=== PATIENT | female | born 1950 | race Caucasian/White ===

== ENCOUNTER 2022-03-10 15:51 | Emergency (ER) | payer OTHER, MEDICARE, SELFPAY ==
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
[2022-03-10 16:03] VITALS: BP 169/70; BP 173/83; PULSE 70; PULSE 74; RESP 16; TEMP 36.4; O2SAT 98; BMI 41.1
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
[2022-03-10] MEDS: Acetaminophen 325 MG TABLET 975 MG PO (19:10)
== END 2022-03-10 19:29 | disposition home or self-care (01) ==
PROVIDERS: Emergency Provider Emergency Medicine
DX: S06.0X9A Concussion with loss of consciousness of unspecified duration, initial encounter (principal); S13.4XXA Sprain of ligaments of cervical spine, initial encounter; R51.9 Headache, unspecified; M54.2 Cervicalgia; M54.50 Low back pain, unspecified; V73.6XXA Passenger on bus injured in collision with car, pick-up truck or van in traffic accident, initial encounter; Y93.9 Activity, unspecified; Y92.410 Unspecified street and highway as the place of occurrence of the external cause; Y99.9 Unspecified external cause status; Z79.899 Other long term (current) drug therapy
CPT/HCPCS: 70450; 72125; 72131; 99283; 99284

== ENCOUNTER 2023-04-28 13:06 | Outpatient (AMB) | payer MEDICARE, SELFPAY ==
--- NOTE | 2023-04-28 13:17 | A.OFFPC_ITS ---
Vital Signs 04/28/23 13:18 Height 5 ft Weight 226 lb BMI 44.1 BP 134/78 Blood Pressure Location Lt brachial Position Sitting Pulse 90 Pulse Source Pulse Oximeter Pulse Oximetry (%) 98 Oxygen Delivery Method Room Air Intake Visit Reasons: New patient-DM Intake Note: Pt is here today for New patient visit. Allergies acarbose Allergy (Verified 04/28/23 13:26) Abdominal Pain acetaminophen [From Vicodin] Allergy (Verified 04/28/23 13:26) Rash amlodipine [From Norvasc] Allergy (Verified 04/28/23 13:26) Swelling atorvastatin [From Lipitor] Allergy (Verified 04/28/23 13:26) tumor that developed on her liver bee pollen [bee stings] Allergy (Verified 04/28/23 13:) Anaphylaxis codeine Allergy (Verified 04/28/23:) Rash dulaglutide [From Trulicity] Allergy (Verified 04/28/23 13:26) Abdominal Pain empagliflozin [From Jardiance] Allergy (Verified 04/28/23 13:26) Abdominal Pain erythromycin base Allergy (Verified 04/28/23 13:) Itching glipizide Allergy (Verified 04/28/23 13:26) Abdominal Pain hydrocodone [From Vicodin] Allergy (Verified 04/28/23 13:26) Rash Iodinated Contrast Media [IV Contrast Dye] Allergy (Verified 04/28/23 13:) Anaphylaxis lisinopril [From Zestril] Allergy (Verified 04/28/23 13:26) Blurry Vision marijuana (cannabis) Allergy (Verified 04/28/23 13:26) Chest Pain morphine Allergy (Verified 04/28/23 13:26) Rash moxifloxacin [From Avelox] Allergy (Verified 04/28/23 13:26) Rash omeprazole [From Prilosec] Allergy (Verified 04/28/23 13:26) Chest Pain oxycodone Allergy (Verified 04/28/23 13:26) Rash Penicillins [PCN] Allergy (Verified 04/28/23 13:26) Rash pravastatin [From Pravachol] Allergy (Verified 04/28/23 13:26) effects the liver shellfish derived Allergy (Verified 04/28/23 13:26) Angioedema stevioside [From Stevia] Allergy (Verified 04/28/23 13:26) Swelling Sulfa (Sulfonamide Antibiotics) Allergy (Verified 04/28/23 13:26) Swelling sulfamethoxazole [From Bactrim] Allergy (Verified 04/28/23 13:26) Swelling Tetracyclines Allergy (Verified 04/28/23 13:26) Rash tramadol Allergy (Verified 04/28/23 13:26) Rash trimethoprim [From Bactrim] Allergy (Verified 04/28/23 13:26) Swelling Medication List - Last Reconciled 04/28/23 by Rosalinda Acevedo MD albuterol sulfate 90 mcg/actuation inhalation aspirin 81 mg PO DAILY cholecalciferol (vitamin D3) 50 mcg PO DAILY clindamycin HCl 600 mg PO ONCE ezetimibe mg PO DAILY [fish oil 1000] [flax seed oil 1000] fluticasone propionate 50 mcg/actuation sprays intranasal insulin glargine (Lantus Solostar U-100 Insulin) units subcut lancets (FreeStyle Lancets) As directed lansoprazole 30 mg PO BID losartan 100 mg PO DAILY magnesium oxide 400 mg PO DAILY metformin 1,000 mg PO BID ondansetron mg PO DAILY pediatric multivitamin no.49 (Flintstones Gummies chewable tablet) tabs PO pen needle, diabetic (BD Stacie 2nd Gen Pen Needle) As directed polyethylene glycol 3350 (Miralax) 17 grams PO DAILY [stool softener PO] [vitamin c with echinacea PO] Tobacco use date assessed: 04/28/23 Fall risk assessment: No Falls in past year Last assessed Fall Risk: 04/28/23 Dental Screening Dental Screen Date: 04/28/23 Did you have a dental visit in the last 12 months?: Yes Did you have a dental problem in the last 6 months where you did not have access to dental care?: No Was dental information given to patient?: Patient has dentist HPI New patient-DM HPI Details Pt presents for BUSINESS IMPROVEMENT MANAGER visit. Pt had L spine fusion surgery at [facility] 2 weeks ago and is recovering. PMH includes HTN, DM 2, hyperlipid, stable on meds. Pt f/u with endo at [facility] and was started on Insulin for poorly controlled DM . PFSH Medical History (Updated 04/28/23 @ 14:55 by Rosalinda Acevedo MD) Tumor of liver Surgical History (Updated 04/28/23 @ 14:08 by Rosalinda Acevedo MD) H/O endoscopy H/O colonoscopy History of fundoplication Hx of total knee replacement History of hysterectomy Hx of hernia repair S/P cholecystectomy Hx of appendectomy Hx of tubal ligation Hx of adenoidectomy Hx of tonsillectomy Family History (Updated 04/28/23 @ 13:41 by Michelle So Maria Elena) Father Lung cancer Mother Diabetes Hypertension Heart problem ALS (amyotrophic lateral sclerosis) Social History Housing: House Patient Tobacco Use Status: Never used Tobacco Current occupational status: retired Cognitive needs: No Hearing needs: No Vision needs: Yes Questionnaire PHQ-9 Over the last 2 weeks, how often have you been bothered by any of the following problems? 1. Little interest or pleasure in doing things: not at all 2. Feeling down, depressed, or hopeless: not at all 3. Trouble falling or staying asleep, or sleeping too much: not at all 4. Feeling tired or having little energy: not at all 5. Poor appetite or overeating: not at all 6. Feeling bad about yourself - or that you are a failure or have let yourself or your family down: not at all 7. Trouble concentrating on things, such as reading the newspaper or watching television: not at all 8. Moving or speaking so slowly that other people could have noticed. Or the opposite - being so fidgety or restless that you have been moving around a lot more than usual: not at all 9. Thoughts that you would be better off or of hurting yourself in some way: not at all Total score: 0 Depression Screening Interpretation: Negative Depression Screening Done: Yes Source: Developed by Drs. Olu Ma, Payton Mcpherson, Filippo Villatoro and colleagues, with an educational andrea from [employer]. Thrive Questionnaire Date Thrive assessed: 04/28/23 I am a: Patient What is your living situation today?: I have a steady place to live Within the past 12 months, did the food you bought not last and you didn't have the money to get more?: Never true Within the past 12 months, did you worry whether your food would run out before you got money to buy more?: Never true Do you have trouble paying for medicines?: No Do you have trouble getting transportation to medical appointments?: No Do you have trouble paying your heating and electricity bill?: No Do you have trouble taking care of your child, family member or friend?: No Do you have trouble with day-to-day activities such as bathing, preparing meals, shopping, managing finances, etc.?: No Are you currently unemployed and looking for a job?: No Are you interested in more education?: No Please select the resources that you would like help with: None Currently or been in a relationship where the following occur: no concerns reported AUDIT C Alcohol Use Questionnaire (AUDIT-C) 1. How often do you have a drink containing alcohol?: Never 3. How often do you have six or more drinks on one occasion?: Never Total Score: 0 ELLE-7 AMB Questionnaire ELLE-7 Date ELLE - 7 assessed: 04/28/23 Feeling nervous, anxious, or on edge: 0 = Not at all Not being able to stop or control worryin = Not at all Worrying too much about different things: 0 = Not at all Trouble relaxin = Not at all Being so restless that it is hard to sit still: 0 = Not at all Becoming easily annoyed or irritable: 0 = Not at all Feeling afraid as if something awful might happen: 0 = Not at all Total ELLE-7 score (0-4 normal; 5-9 mild; 10-14 moderate; 15-21 severe): 0 Source: Developed by Drs. Olu Ma, Payton Mcpherson, Filippo Villatoro and colleagues, with an educational andrea from [employer]. Review of Systems Const All systems reviewed & are unremarkable except as noted in HPI and below Reports no additional complaints Eyes Reports no additional complaints ENT Reports no additional complaints Card Reports no additional complaints Resp Reports no additional complaints GI Reports no additional complaints Reports no additional complaints Physical exam (Primary Care) Vital Signs: Last Vital Signs Pulse 90 04/28/23 13:18 BP 134/78 04/28/23 13:18 Pulse Ox 98 04/28/23 13:18 Oxygen Delivery Method Room Air 04/28/23 13:18 BMI result Body Mass Index 44.1 Tobacco/Smoking Status: Tobacco use Status Tobacco use date assessed 04/28/23 04/28/23 13:56 Patient Tobacco Use Status Never used Tobacco 04/28/23 13:56 PHQ-9: PHQ-9 Score PHQ-9: Total score 0 04/28/23 13:57 Depression Screening Interpretation: Negative Thrive Assessment: Date of Thrive Assessment Date Thrive assessed 04/28/23 04/28/23 13:57 Currently or been in a relationship where the following occur: no concerns reported Const General: no acute distress Nutritional Appearance: obese HENMT Head: Yes normal to inspection Ears: hearing grossly normal bilaterally Face and sinus: Yes normal facial exam Mouth: Normal oral and palatal mucosa present Eyes General: appearance normal, both eyes and all related structures Neck Neck: Yes no lymphadenopathy and Yes supple Resp Effort & Inspection: normal respiratory effort Auscultation: clear to auscultation bilaterally Cardio Rhythm: regular rhythm Heart sounds: S1 normal heart sound present and S2 normal heart sound present GI Inspection: Yes normal to inspection Palpation (GI): Soft to palpation Percussion: Yes normal to percussion Auscultation: normal bowel sounds Assessment and Plan Assessment & Plan (1) GERD (gastroesophageal reflux disease): Comment: EGD 2020, [facility], dysmotility Code(s): K21.9 - Gastro-esophageal reflux disease without esophagitis Plan: cont PPI (2) Pituitary mass: Comment: 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 She will start glucose monitoring with Everardo and cont current meds. f/u in 3 months (6) Vitamin D deficiency: Code(s): E55.9 - Vitamin D deficiency, unspecified (7) Obesity: Code(s): E66.9 - Obesity, unspecified Plan: weight loss discussed (8) Fusion of lumbosacral spine: Comment: 04/10 Steff Code(s): M43.27 - Fusion of spine, lumbosacral region Plan: f/u with ortho Orders: Orders Comprehensive [place]. Panel Fast 3 Months E11.9 - Type 2 diabetes mellitus without complications, E78.5 - Hyperlipidemia, unspecified, I10 - Essential (primary) hypertension Lipid Panel 3 Months E11.9 - Type 2 diabetes mellitus without complications, E78.5 - Hyperlipidemia, unspecified, I10 - Essential (primary) hypertension Ferritin 3 Months E11.9 - Type 2 diabetes mellitus without complications, E78.5 - Hyperlipidemia, unspecified, I10 - Essential (primary) hypertension Vitamin D 25-OH Total 3 Months E11.9 - Type 2 diabetes mellitus without complications, E55.9 - Vitamin D deficiency, unspecified, E78.5 - Hyperlipidemia, unspecified, I10 - Essential (primary) hypertension IRON PROFILE 3 Months E11.9 - Type 2 diabetes mellitus without complications, E78.5 - Hyperlipidemia, unspecified, I10 - Essential (primary) hypertension C Reactive Protein 3 Months E11.9 - Type 2 diabetes mellitus without complications, E78.5 - Hyperlipidemia, unspecified, I10 - Essential (primary) hypertension Hemoglobin A1c 3 Months E11.9 - Type 2 diabetes mellitus without complications, E78.5 - Hyperlipidemia, unspecified, I10 - Essential (primary) hypertension Complete Blood Count Auto Diff 3 Months E11.9 - Type 2 diabetes mellitus without complications, E78.5 - Hyperlipidemia, unspecified, I10 - Essential (primary) hypertension Microalbumin, Random (w Creat) 3 Months E11.9 - Type 2 diabetes mellitus without complications, E78.5 - Hyperlipidemia, unspecified, I10 - Essential (primary) hypertension Medications: New blood-glucose sensor (FreeStyle Everardo 3 Sensor device) As directed 2 ea 5RF Coding Level of Care Code New Pt Level 4 (63169) Diagnoses GERD (gastroesophageal reflux disease) K21.9 Pituitary mass E23.6 Hyperlipidemia E78.5 HTN (hypertension) I10 DM type 2 (diabetes mellitus, type 2) E11.9 Vitamin D deficiency E55.9 Obesity E66.9 Fusion of lumbosacral spine M43.27
[2023-04-28 13:18] VITALS: BP 134/78; PULSE 90; O2SAT 98; BMI 44.1
== END 2023-04-28 14:18 | disposition home or self-care (01) ==
PROVIDERS: Visit Provider Internal Medicine
DX: K21.9 Gastro-esophageal reflux disease without esophagitis (principal); E23.6 Other disorders of pituitary gland; E11.9 Type 2 diabetes mellitus without complications; E78.5 Hyperlipidemia, unspecified; I10 Essential (primary) hypertension; E55.9 Vitamin D deficiency, unspecified; E66.9 Obesity, unspecified; M43.27 Fusion of spine, lumbosacral region
CPT/HCPCS: 99204

== ENCOUNTER 2024-07-09 11:20 | Emergency (ER) | payer MEDICARE, SELFPAY ==
--- NOTE | ~2024-07-09 | XR_ITS ---
EXAMINATION: XR KNEE, RIGHT CLINICAL INFORMATION: fall, pain COMPARISON: None available. TECHNIQUE: Four views of the right knee. FINDINGS: Right tricompartmental total knee arthroplasty. Alignment maintained. No fracture or dislocation is seen. Mild soft tissue swelling is present in the lower thigh and anterior to the knee. XR/XR knee RT 4V IMPRESSION: Mild soft tissue swelling. Normal alignment. No acute fracture or dislocation is seen. Electronically signed by: Arash Brooks MD 07/09/2024 12:35 PM [facility]
--- NOTE | ~2024-07-09 | CT_ITS ---
EXAMINATION: CT HEAD WITHOUT CONTRAST CLINICAL INFORMATION: Humza COMPARISON: CTA head from 03/10/2022 TECHNIQUE: Contiguous axial imaging was performed from the skull base to vertex without intravenous administration of contrast. This CT examination was performed using dose optimization techniques as appropriate, variously including the following: *Automated exposure control *Adjustment of mA and/or kV according to patient size (this includes techniques or standardized protocols for targeted exams where dose is matched to indication/reason for exam; i.e. extremities or head) *Use of iterative reconstruction technique DLP: 583 mGy-cm FINDINGS: Previously identified hyperdense sellar nodule measuring 5 mm is redemonstrated and stable. Chronic white matter small vessel ischemic changes. There is no evidence of acute intracranial hemorrhage or territorial infarction. No abnormal mass effect or midline shift is seen. [place] to white matter differentiation is well preserved. No extra-axial fluid collections are identified. The ventricles are normal in size. There is no abnormal attenuation within the brain parenchyma. The osseous structures and soft tissues are normal. The mastoid air cells and visualized portions of the paranasal sinuses are well aerated. CT/CT cervical spine wo IV con IMPRESSION: 1. No acute intracranial pathology. 2. Previously identified hyperdense sellar nodule measuring 5 mm is redemonstrated and stable. 3. Chronic white matter small vessel ischemic changes. EXAMINATION: Noncontrast CT scan of the cervical spine. INDICATION: Fall COMPARISON: CT cervical spine from 03/10/2022 TECHNIQUE: Helical, multidetector axial images were obtained from the occiput to the upper thorax. Coronal and sagittal reformats of the cervical spine were provided for interpretation. DLP: 430 mGy-cm FINDINGS: No acute fractures or dislocations of the cervical spine are seen. Multilevel degenerative changes. Anatomic alignment and positioning of the vertebral bodies and posterior elements is noted. The atlantoaxial joint and craniovertebral articulations are normal without evidence of subluxation. There is no prevertebral soft tissue swelling. The thyroid gland and visualized portions of the lung apices and mediastinum are unremarkable. IMPRESSION: 1. No acute visible fracture or dislocation. 2. Multilevel degenerative changes. Electronically signed by: Davide Salazar MD 07/09/2024 12:36 PM [facility]
--- NOTE | ~2024-07-09 | XR_ITS ---
EXAMINATION: XR HAND/WRIST, LEFT CLINICAL INFORMATION: fall, pain COMPARISON: None available. TECHNIQUE: PA, lateral, and oblique views of the left hand and wrist. FINDINGS: The lateral view is limited due to overlap of the digits. 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 Evaluation is limited due to positioning. A subtle lucency at the base of the fifth metacarpal bone ulnar aspect could potentially reflect a small nondisplaced fracture. Alignment maintained. XR/XR hand wrist LT IMPRESSION: Degenerative changes are seen in the hand and wrist. Limited evaluation due to positioning. A subtle fracture at the base of the fifth metacarpal bone is not excluded. Correlate with the site of tenderness. Electronically signed by: Arash Brooks MD 07/09/2024 12:28 PM [facility]
--- NOTE | ~2024-07-09 | CT_ITS ---
EXAMINATION: CT HEAD WITHOUT CONTRAST CLINICAL INFORMATION: [place] COMPARISON: CTA head from 03/10/2022 TECHNIQUE: Contiguous axial imaging was performed from the skull base to vertex without intravenous administration of contrast. This CT examination was performed using dose optimization techniques as appropriate, variously including the following: *Automated exposure control *Adjustment of mA and/or kV according to patient size (this includes techniques or standardized protocols for targeted exams where dose is matched to indication/reason for exam; i.e. extremities or head) *Use of iterative reconstruction technique DLP: 583 mGy-cm FINDINGS: Previously identified hyperdense sellar nodule measuring 5 mm is redemonstrated and stable. Chronic white matter small vessel ischemic changes. There is no evidence of acute intracranial hemorrhage or territorial infarction. No abnormal mass effect or midline shift is seen. [place] to white matter differentiation is well preserved. No extra-axial fluid collections are identified. The ventricles are normal in size. There is no abnormal attenuation within the brain parenchyma. The osseous structures and soft tissues are normal. The mastoid air cells and visualized portions of the paranasal sinuses are well aerated. CT/CT head/brain wo IV con IMPRESSION: 1. No acute intracranial pathology. 2. Previously identified hyperdense sellar nodule measuring 5 mm is redemonstrated and stable. 3. Chronic white matter small vessel ischemic changes. EXAMINATION: Noncontrast CT scan of the cervical spine. INDICATION: Fall COMPARISON: CT cervical spine from 03/10/2022 TECHNIQUE: Helical, multidetector axial images were obtained from the occiput to the upper thorax. Coronal and sagittal reformats of the cervical spine were provided for interpretation. DLP: 430 mGy-cm FINDINGS: No acute fractures or dislocations of the cervical spine are seen. Multilevel degenerative changes. Anatomic alignment and positioning of the vertebral bodies and posterior elements is noted. The atlantoaxial joint and craniovertebral articulations are normal without evidence of subluxation. There is no prevertebral soft tissue swelling. The thyroid gland and visualized portions of the lung apices and mediastinum are unremarkable. IMPRESSION: 1. No acute visible fracture or dislocation. 2. Multilevel degenerative changes. Electronically signed by: Davide Salazar MD 07/09/2024 12:36 PM EST RP
--- NOTE | ~2024-07-09 | XR_ITS ---
EXAMINATION: XR SHOULDER, LEFT CLINICAL INFORMATION: fall, pain COMPARISON: None TECHNIQUE: Three views of the left shoulder. FINDINGS: Comminuted fracture is seen involving the surgical neck of the humerus and greater tuberosity with mild anteromedial displacement and posterior angulation of the distal fragment. Degenerative changes are seen at the glenohumeral articulation and acromioclavicular articulation. No additional acute osseous findings. XR/XR shoulder LT min 2V IMPRESSION: Mildly displaced and angulated comminuted fracture involving the surgical neck of the humerus and greater tuberosity. Electronically signed by: Arash Brooks MD 07/09/2024 12:34 PM [facility]
[2024-07-09 11:27] VITALS: BP 172/78; BP 180/84; PULSE 66; PULSE 74; RESP 16; TEMP 36.6; O2SAT 98; O2SAT 99; BMI 41.7
--- NOTE | 2024-07-09 11:45 | ED.FALL ---
HPI - Fall General Chief Complaint: Fall Stated Complaint: HOME WITH FALL SHOULDER PAIN Time Seen by Provider: 07/09/24 11:29 Source: patient and EMS Mode of arrival: EMS Limitations: no limitations History of Present Illness ED Provider: Sue Rocha NP HPI Narrative: Patient is a 73-year-old female who presents emergency department via EMS for evaluation after mechanical trip and fall prior to arrival. She reports that she was attempting to vacuum under the carpet when she subsequently tripped and fell landing onto the right knee and subsequently the left shoulder endorsing head strike on the left side. Denies loss of consciousness. Denies use of anticoagulants or known coagulation disorders. Her pain is primarily to the left shoulder radiating down the entire arm. Most painful at the shoulder as well as the wrist. Painful right knee with ecchymosis and swelling, history of a prior replacement. Denies precipitating symptoms such as headache, dizziness, lightheadedness, vision changes, chest pain, shortness of breath, nausea, vomiting, numbness or tingling of the extremity. Related Data Home Medications ?Medication ?Instructions ?Recorded ?Confirmed aspirin 81 mg tablet,delayed 81 mg PO BEDTIME 04/28/23 07/10/24 release cholecalciferol (vitamin D3) 50 50 mcg PO DAILY 04/28/23 07/10/24 mcg (2,000 unit) capsule lancets 28 gauge (FreeStyle #100 ea 04/28/23 04/28/23 Lancets) magnesium oxide 400 mg (241.3 mg 400 mg PO DAILY 04/28/23 07/10/24 magnesium) tablet pen needle, diabetic 32 gauge x #1,200 ea 04/28/23 04/28/23 (BD Stacie 2nd Gen Pen Needle) cyanocobalamin (vitamin B-12) 1,000 mcg PO DAILY 07/10/24 07/10/24 1,000 mcg tablet (Vitamin B-12) dicyclomine 10 mg capsule 10 mg PO BID PRN Gastrointestinal 07/10/24 07/10/24 Spasms Or Cramping docusate sodium 100 mg tablet 100 mg PO DAILY 07/10/24 07/10/24 ezetimibe 10 mg tablet 10 mg PO BEDTIME 07/10/24 07/10/24 flaxseed 1,000 mg capsule 1,000 mg PO DAILY 07/10/24 07/10/24 ketoconazole 2 % topical cream 1 appl topical DAILY PRN 07/10/24 07/10/24 Fungal/Yeast Infection lansoprazole 30 mg capsule,delayed 30 mg PO DAILY 07/10/24 07/10/24 release losartan 100 mg tablet 100 mg PO DAILY 07/10/24 07/10/24 metformin 500 mg tablet 1,000 mg PO BID 07/10/24 07/10/24 omega 3-arf-geg-fish oil 1,200 mg 1 cap PO DAILY 07/10/24 07/10/24 (144 mg-216 mg) capsule (Fish Oil) triamcinolone acetonide 0.1 % 1 appl topical DAILY PRN Rash 07/10/24 07/10/24 topical cream vitamin B complex 1 tab PO DAILY 07/10/24 07/10/24 Previous Rx's ?Medication ?Instructions ?Recorded blood-glucose sensor (FreeStyle #2 ea 04/28/23 Everardo 3 Sensor device) Allergies Allergy/AdvReac Type Severity Reaction Status Date / Time acarbose Allergy Abdominal Verified 07/09/24 11:34 Pain acetaminophen [From Vicodin] Allergy Rash Verified 07/09/24 11:34 amlodipine [From Norvasc] Allergy Swelling Verified 07/09/24 11:34 atorvastatin [From Lipitor] Allergy tumor that Verified 07/09/24 11:34 developed on her liver bee pollen [bee stings] Allergy Anaphylaxis Verified 07/09/24 11:34 codeine Allergy Rash Verified 07/09/24 11:34 dulaglutide [From Trulicity] Allergy Abdominal Verified 07/09/24 11:34 Pain empagliflozin Allergy Abdominal Verified 07/09/24 11:34 [From Jardiance] Pain erythromycin base Allergy Itching Verified 07/09/24 11:34 glipizide Allergy Abdominal Verified 07/09/24 11:34 Pain hydrocodone [From Vicodin] Allergy Rash Verified 07/09/24 11:34 Iodinated Contrast Media Allergy Anaphylaxis Verified 07/09/24 11:34 [IV Contrast Dye] lisinopril [From Zestril] Allergy Blurry Verified 07/09/24 11:34 Vision marijuana (cannabis) Allergy Chest Pain Verified 07/09/24 11:34 morphine Allergy Rash Verified 07/09/24 11:34 moxifloxacin [From Avelox] Allergy Rash Verified 07/09/24 11:34 omeprazole [From Prilosec] Allergy Chest Pain Verified 07/09/24 11:34 oxycodone Allergy Rash Verified 07/09/24 11:34 Penicillins [PCN] Allergy Rash Verified 07/09/24 11:34 pravastatin [From Pravachol] Allergy effects Verified 07/09/24 11:34 the liver shellfish derived Allergy Angioedema Verified 07/09/24 11:34 stevioside [From Stevia] Allergy Swelling Verified 07/09/24 11:34 Sulfa (Sulfonamide Allergy Swelling Verified 07/09/24 11:34 Antibiotics) sulfamethoxazole Allergy Swelling Verified 07/09/24 11:34 [From Bactrim] Tetracyclines Allergy Rash Verified 07/09/24 11:34 trimethoprim [From Bactrim] Allergy Swelling Verified 07/09/24 11:34 Review of Systems Review of Systems: Yes all other systems are reviewed and are negative PMFSH Past Medical History Attestation statement: The following information was validated with the patient. Source: old records reviewed Medical History Tumor of liver Surgical History H/O endoscopy H/O colonoscopy History of fundoplication Hx of total knee replacement History of hysterectomy Hx of hernia repair S/P cholecystectomy Hx of appendectomy Hx of tubal ligation Hx of adenoidectomy Hx of tonsillectomy Family History Family History (Updated 04/28/23 @ 13:41 by BRIT Dawson) Father Lung cancer Mother Diabetes Hypertension Heart problem ALS (amyotrophic lateral sclerosis) Social History Social History Housing: House Patient Tobacco Use Status: Never used Tobacco Smoked in Last 30 Days: No Use of substances other than those prescribed or required for medical reasons: No Advance Directives: Yes Advance Directives Information Provided: Yes Advance Directives on File: No Current occupational status: retired Cognitive needs: No Hearing needs: No Vision needs: Yes Physical Exam Vital Signs: Vital Signs: Last Vital Signs Temp 98.2 F 07/10/24 07:30 Pulse 70 07/10/24 08:06 Resp 17 07/10/24 07:30 BP 121/67 07/10/24 08:06 Pulse Ox 93 07/10/24 08:06 O2 Del Method Room Air 07/10/24 07:30 BMI result Body Mass Index 41.7 Appearance: Alert.?Oriented to person, place and time. No acute distress.?Normal affect. Head: Normocephalic, atraumatic Eyes: Pupils equal, round and reactive to light.? EOMI. No palpable periorbital deformities or ecchymosis ENT: Pharynx normal.??TM normal bilaterally. No rhinorrhea. No septal hematoma. TM normal bilaterally Neck: Normal inspection.? Neck supple.??No midline cervical spine tenderness, step-offs, deformities. Back: No midline thoracic or lumbar spine tenderness, step-offs, deformities. CVS: Heart sounds normal. Normal heart rate and rhythm.? Pulses normal.?? Respiratory: No respiratory distress.? Lung sounds clear to auscultation bilaterally?? Abdomen: Soft and non-tender. Normoactive bowel sounds Skin: Skin warm and dry.? Normal skin color.? Extremities: No lower extremity edema.? Right knee with localized swelling and ecchymosis decreased AROM, 2+ DP/PT pulse bilaterally., left shoulder swelling, diffuse tenderness throughout the arm, 2+ radial pulse. Neuro: Moves all extremities spontaneously. Sensation intact bilaterally. CN II-XII intact. No focal neuro deficits. Course Reevaluation(s) Reevaluation #1: Nursing staff have not been able to administer tramadol as it this time. She is amenable to taking the fentanyl IV as her pain is quite severe. Patient made aware of findings on XR imaging. On my evaluation she does not have any point tenderness at the base of the 5th metacarpal, more so endorsing pain diffusely throughout the entire arm and hand. She is able to flex her wrist without exacerbation of pain. Lower suspicion that this is an acute fracture versus degenerative changes. Will reassess after analgesia Time: 12:41 Reevaluation #2: Patient continues to have pain diffusely throughout the arm, orthopedics was consulted, given the questionable fracture to the proximal 5th metacarpal, and concern for excessive weight with splinting on the shoulder and subsequent increase in pain, 4th 5th digit will be barbara-taped and a volar wrist splint will be applied in addition to the sling. I reviewed these findings with patient, expressed concern about her ability to ambulate safely at home, given the contusion to her right knee and significant pain though there is no acute fracture. She would not be a candidate for cane/walker/crutches given the left arm injury but will attempt ambulatory trial Unsuccessful ambulatory trial. Given the presence of fracture to the left arm and contusion of the right knee she would not be amenable to walker crutches or cane for facilitating ambulation. I spoke with patient at length about this, she is amenable to physical therapy evaluation/case management for safe disposition planning, possibly STR. Basic labs obtained for medical screening, patient signed out to Wilver BUCKNER pending lab Additional Reevaluation(s): 07/10/24-926--physician observation continued. Vital signs stable. Labs and imaging reviewed. PT and case management pending we will continue to monitor. Med recc pending -1238-- Physician observation completed at 1239. Physical therapy evaluated patient and recommended home with services. Patient will go home with physical therapy. Her brother will transport her home. Patient does not meet medical necessity for hospitalization. Final disposition discussed with patient and family who verbalized understanding and are in agreement. Medications Administered Generic Name Dose Route Start Last Admin Trade Name Freq PRN Reason Stop Dose Admin Tramadol HCl 50 mg 07/09/24 15:57 07/10/24 11:02 Tramadol Hcl 50 Mg Tablet PO 50 mg Q6H PRN Administration Pain, Moderate(Pain Scale 4-6) Discontinued Medications Generic Name Dose Route Start Last Admin Trade Name Freq PRN Reason Stop Dose Admin Fentanyl 25 mcg 07/09/24 12:43 07/09/24 12:49 Fentanyl Citrate/Pf 100 Mcg/2 Ml Vial IVPUSH 07/09/24 12:44 25 mcg ONCE ONE Administration Protocol Fentanyl 25 mcg 07/09/24 14:11 07/09/24 14:44 Fentanyl Citrate/Pf 100 Mcg/2 Ml Vial IVPUSH 07/09/24 14:12 25 mcg ONCE ONE Administration Protocol Ondansetron HCl 4 mg 07/09/24 11:31 07/09/24 12:48 Ondansetron Hcl 4 Mg/2 Ml Vial IVPUSH 07/09/24 11:32 4 mg ONCE ONE Administration Tramadol HCl 50 mg 07/09/24 14:11 07/09/24 14:45 Tramadol Hcl 50 Mg Tablet PO 07/09/24 14:12 50 mg ONCE ONE Administration Medical Decision Making Medical Decision Making [facility] Narrative: Patient is a 73-year-old female with past medical history of diabetes, hypertension, hyperlipidemia presents emergency department for evaluation after mechanical trip and fall with subsequent head strike or loss of consciousness, injury to left upper extremity and right knee as per HPI. She appears significantly uncomfortable on arrival. She has multiple analgesic allergies listed upon her arrival, she was offered fentanyl for pain management 04/27, was not listed as allergy however she is hesitant to taking this. Tramadol was initially listed as an allergy but she states that she has been able to take this without difficulty. Allergy reaction listed for most analgesics includes rash which by her account is urticaria. The fall was mechanical in nature without endorsing any precipitating symptoms. Feel that we can forego any serum labs and/or additional workup as would if the etiology was unknown. She did have head strike and given her age will obtain CT head and cervical spine to exclude ICH, SDH, fracture. She has no focal neurological deficits on examination. Her extremities at this time all remained neurovascularly intact distally. XR imaging of the left upper extremity including shoulder, hand/wrist, and right knee. Differential Diagnosis Differential Diagnoses: The differential diagnosis associated with the presentation includes (See narrative above) Admission/Observation Consideration of admission/observation: Escalation of care including admission/observation considered (See narrative above and course narrative for further detail) Lab Data 07/09/24 18:49 07/09/24 16:31 Labs: Lab Results 07/09/24 07/09/24 07/10/24 Range/Units 16:31 18:49 06:56 WBC 12.9 H (4.8-10.8) X10*3/uL RBC 3.98 L (4.20-5.50) X10*6/uL Hgb 12.4 (12.0-16.0) g/dl Hct 37.4 (37.0-47.0) % MCV 94.0 (80.0-98.0) fL MCH 31.2 (27.0-33.0) pg MCHC 33.2 (31.0-35.0) g/dl RDW 13.8 (11.0-16.0) % Plt Count 262 (160-400) X10*3/uL MPV 9.8 (9.4-12.3) fL Immature Gran % (Auto) 0.3 (0.0-0.4) % Neut % (Auto) 78.4 H (45-73) % Lymph % (Auto) 14.9 L (20-40) % [place] % (Auto) 6.1 (2-11) % Eos % (Auto) 0.1 (0-4) % Baso % (Auto) 0.2 (0-2) % Lymph # (Auto) 1.9 (1.2-4.9) X10*3/uL [place] # (Auto) 0.8 (0.1-1.2) X10*3/uL Eos # (Auto) 0.0 (0.0-0.4) X10*3/uL Baso # (Auto) 0.0 (0.0-0.2) X10*3/uL Abs Immat Gran (auto) 0.04 H (0.00-0.03) X10*3/uL Absolute Neuts (auto) 10.1 H (2.0-8.3) x10*3/uL Absolute Nucleated RBC 0.000 (0.0-0.012) X10*3/uL Nucleated RBC % (auto) 0.0 (0.0-0.2) /100WBC Sodium 141 (135-145) mmol/L Potassium 5.1 (3.3-5.1) mmol/L Chloride 108 (96-108) mmol/L Carbon Dioxide 23 (22-29) mmol/L Anion Gap 15 (12-20) BUN 13 (9-16) mg/dL Creatinine 0.81 (0.5-1.4) mg/dL Estim Creat Clear Calc 68.7 Estimated GFR > 60 POC Glucose 169 H (60-115) mg/dL Random Glucose 149 H (60-115) mg/dL Calcium 9.3 (8.4-10.2) mg/dL Total Bilirubin 0.5 (0.0-1.0) mg/dL AST 44 H (5-31) U/L ALT 38 H (0-31) U/L Alkaline Phosphatase 92 (39-117) U/L Total Protein 7.2 (6.5-8.0) g/dL Albumin 3.9 (3.5-5.0) g/dL COVID-19 (MARVIN) (Negative) COVID-19 Clin Com 07/10/24 Range/Units 11:35 WBC (4.8-10.8) X10*3/uL RBC (4.20-5.50) X10*6/uL Hgb (12.0-16.0) g/dl Hct (37.0-47.0) % MCV (80.0-98.0) fL MCH (27.0-33.0) pg MCHC (31.0-35.0) g/dl RDW (11.0-16.0) % Plt Count (160-400) X10*3/uL MPV (9.4-12.3) fL Immature Gran % (Auto) (0.0-0.4) % Neut % (Auto) (45-73) % Lymph % (Auto) (20-40) % [place] % (Auto) (2-11) % Eos % (Auto) (0-4) % Baso % (Auto) (0-2) % Lymph # (Auto) (1.2-4.9) X10*3/uL [place] # (Auto) (0.1-1.2) X10*3/uL Eos # (Auto) (0.0-0.4) X10*3/uL Baso # (Auto) (0.0-0.2) X10*3/uL Abs Immat Gran (auto) (0.00-0.03) X10*3/uL Absolute Neuts (auto) (2.0-8.3) x10*3/uL Absolute Nucleated RBC (0.0-0.012) X10*3/uL Nucleated RBC % (auto) (0.0-0.2) /100WBC Sodium (135-145) mmol/L Potassium (3.3-5.1) mmol/L Chloride (96-108) mmol/L Carbon Dioxide (22-29) mmol/L Anion Gap (12-20) BUN (9-16) mg/dL Creatinine (0.5-1.4) mg/dL Estim Creat Clear Calc Estimated GFR POC Glucose (60-115) mg/dL Random Glucose (60-115) mg/dL Calcium (8.4-10.2) mg/dL Total Bilirubin (0.0-1.0) mg/dL AST (5-31) U/L ALT (0-31) U/L Alkaline Phosphatase (39-117) U/L Total Protein (6.5-8.0) g/dL Albumin (3.5-5.0) g/dL COVID-19 (MARVIN) Negative (Negative) COVID-19 Clin Com See Note Independent Interpretation I performed an independent interpretation of an: Plain X-Ray (Comminuted Fracture of the left proximal humerus at the surgical neck) and CT Scan (No ICH or fracture) Radiology Impression Discussion of test interpretation with radiology: I have reviewed the radiologist's reading. Radiologist Impression: XR/XR hand wrist LT IMPRESSION: Degenerative changes are seen in the hand and wrist. Limited evaluation due to positioning. A subtle fracture at the base of the fifth metacarpal bone is not excluded. Correlate with the site of tenderness. XR/XR shoulder LT min 2V IMPRESSION: Mildly displaced and angulated comminuted fracture involving the surgical neck of the humerus and greater tuberosity. XR/XR knee RT 4V IMPRESSION: Mild soft tissue swelling. Normal alignment. No acute fracture or dislocation is seen. EXAMINATION: CT HEAD WITHOUT CONTRAST IMPRESSION: 1. No acute visible fracture or dislocation. 2. Multilevel degenerative changes. CT/CT cervical spine wo IV con IMPRESSION: 1. No acute intracranial pathology. 2. Previously identified hyperdense sellar nodule measuring 5 mm is redemonstrated and stable. 3. Chronic white matter small vessel ischemic changes. Independent Historian Clinical information obtained from an independent historian. History obtained from or confirmed by: Spouse and EMS External Record Review External record reviewed: Outpatient record Prescription Management I considered prescription management with: Pain Medication Chronic Conditions Patient?s care impacted by: Other (See narrative above) Critical Care Time Critical Care Time Critical Care Time: Yes Total Critical Care Time: 35 Attestation: I personally attest to this critical care time spent taking care of the patient exclusive of all other billable procedures was approximately 35 minutes including initial evaluation of patient, ordering tests, x-ray interpretation, fentanyl IV and re-evaluation, medical consultation, documentation, re-evaluation. Discharge Plan Discharge Clinical Impression: Fracture of fifth metacarpal bone of left hand, Contusion of knee, right Fracture of proximal end of humerus Qualifiers: Encounter type: initial encounter Fracture type: closed Laterality: left Patient Disposition: Still a Patient Instructions: Arm Fracture in Adults (ED), Hand Fracture (ED) Prescriptions: No Action metformin 500 mg tablet 1,000 mg PO BID triamcinolone acetonide 0.1 % cream 1 appl topical DAILY PRN (Reason: Rash) lansoprazole 30 mg capsule,delayed release(DR/EC) 30 mg PO DAILY ketoconazole 2 % cream 1 appl topical DAILY PRN (Reason: Fungal/Yeast Infection) losartan 100 mg tablet 100 mg PO DAILY dicyclomine 10 mg capsule 10 mg PO BID PRN (Reason: Gastrointestinal Spasms Or Cramping) ezetimibe 10 mg tablet 10 mg PO BEDTIME cyanocobalamin (vitamin B-12) [Vitamin B-12] 1,000 mcg Tablet 1,000 mcg PO DAILY vitamin B complex Tablet 1 tab PO DAILY docusate sodium 100 mg Tablet 100 mg PO DAILY omega 5-kzk-ejc-fish oil [Fish Oil] 1,200 (144-216) mg Capsule 1 cap PO DAILY flaxseed 1,000 mg Capsule 1,000 mg PO DAILY (DME) pen needle, diabetic [BD Stacie 2nd Gen Pen Needle] 32 gauge x 5/32 needle See Rx Instructions .ROUTE .MEDSUPPLY Qty: 1200 Rx Instructions: As directed magnesium oxide 400 mg (241.3 mg magnesium) tablet 400 mg PO DAILY (DME) lancets [FreeStyle Lancets] 28 gauge misc See Rx Instructions .ROUTE BID Qty: 100 Rx Instructions: As directed aspirin 81 mg tablet,delayed release (DR/EC) 81 mg PO BEDTIME cholecalciferol (vitamin D3) 50 mcg (2,000 unit) capsule 50 mcg PO DAILY (DME) FreeStyle Everardo 3 Sensor Device See Rx Instructions .Route Qty: 2 5RF Rx Instructions: As directed Referrals: Radha TREJO [Outside] Print Language: Nepali
[2024-07-09 12:22] VITALS: BP 172/78; PULSE 68; RESP 15; TEMP 36.1; O2SAT 98
[2024-07-09] MEDS: ondansetron HCL 4 MG/2 ML VIAL IVPUSH (12:48)
[2024-07-09] MEDS: fentaNYL citrate/PF 100 MCG/2 ML VIAL 25 MCG IVPUSH ×2 (12:49→14:44)
[2024-07-09 14:41] VITALS: BP 145/45; PULSE 65; RESP 18; O2SAT 98
[2024-07-09] MEDS: traMADoL HCL 50 MG TABLET PO ×2 (14:45→20:38)
--- NOTE | 2024-07-09 15:50 | PC.NURSE ---
attempted to get pt up to ambulate to d/c - pt unable to tolerate standing at bedside. Tony GROCERY CLERK SELLING made aware. plan for PT/CM
[2024-07-09 17:06] LABS: Alanine Aminotransferase 38 U/L (0-31); Albumin Level 3.9 g/dL (3.5-5.0); Alkaline Phosphatase 92 U/L (39-117); Anion Gap 15 (12-20); Aspartate Amino Transferase 44 U/L (5-31); Bilirubin Total 0.5 mg/dL (0.0-1.0); Blood Urea Nitrogen 13 mg/dL (9-16); Calcium 9.3 mg/dL (8.4-10.2); Carbon Dioxide 23 mmol/L (22-29); Chloride 108 mmol/L (96-108); Creatinine Clr Calc Pharmacy 68.7; Estimated Glomerular Filt Rate > 60; Glucose Random 149 mg/dL (60-115); Potassium 5.1 mmol/L (3.3-5.1); Sodium 141 mmol/L (135-145); Total Protein 7.2 g/dL (6.5-8.0)
[2024-07-09 18:55] LABS: Basophils Percent Auto 0.2 % (0-2); Eosinophils Percent Auto 0.1 % (0-4); Hematocrit 37.4 % (37.0-47.0); Hemoglobin 12.4 g/dl (12.0-16.0); Imm Gran Abs Auto 0.04 X10*3/uL (0.00-0.03); Imm Gran Pct Auto 0.3 % (0.0-0.4); Lymphocytes Absolute Auto 1.9 X10*3/uL (1.2-4.9); Lymphocytes Percent Auto 14.9 % (20-40); Mean Corpuscular HGB Conc 33.2 g/dl (31.0-35.0); Mean Corpuscular Hemoglobin 31.2 pg (27.0-33.0); Mean Platelet Volume 9.8 fL (9.4-12.3); Monocytes Absolute Auto 0.8 X10*3/uL (0.1-1.2); Monocytes Percent Auto 6.1 % (2-11); Neutrophils Absolute Auto 10.1 x10*3/uL (2.0-8.3); Neutrophils Percent Auto 78.4 % (45-73); Platelet Count 262 X10*3/uL (160-400); Red Blood Count 3.98 X10*6/uL (4.20-5.50); Red Cell Distribution Width 13.8 % (11.0-16.0); White Blood Count 12.9 X10*3/uL (4.8-10.8)
[2024-07-09 18:59] VITALS: BP 133/56; PULSE 82; RESP 20; TEMP 37.1; O2SAT 96
[2024-07-10] MEDS: traMADoL HCL 50 MG TABLET PO ×2 (02:11→11:02)
[2024-07-10 06:59] LABS: Glucose, Whole Blood 169 mg/dL (60-115)
[2024-07-10 07:30] VITALS: BP 121/67; PULSE 70; RESP 17; TEMP 36.8; O2SAT 93
[2024-07-10 08:06] VITALS: BP 121/67; PULSE 70; O2SAT 93
--- NOTE | 2024-07-10 08:07 | MHC.EDTECH ---
pt ate 100% of her breakfast, 240cc of juice
--- NOTE | 2024-07-10 09:45 | MHC.EDTECH ---
this tech assisted the pt with a complete bed bath. Pt did very well doing self care. Pt brushed her teeth and is back into bed. Call hernandez in place
--- NOTE | 2024-07-10 11:54 | PHA.MEDREC ---
Addendum entered by Iabn Ballesteros RPh 07/10/24 12:12: MED REC CHECKED BY [facility] Original Note: Pharmacy Consult ? Medication Reconciliation Pharmacy has completed the medication reconciliation. Spoke with patient mlf they confirmed their medicaitons. They confirmed she is not taking the Insulin Glargine insulin anymore and has not in a while . She confirmed the Aspirin 81mg tabs and Exetimibe 10mg tab are taken at bedtime all her other medicaiton are in the morning. She confirmed she took all her morning medications yesterday but was not able to take her night doses of them.
[2024-07-10 12:10] LABS: COVID-19 Test Negative (Negative); IDNOW Serial# 58CA691E
--- NOTE | 2024-07-10 12:46 | MHC.CM.ED ---
Received case management consult overnight. Patient came to the ER after a fall. Found to have left arm fx. Currently in a sling. Physical therapy eval completed. Home services are recommended. Met with patient and , [facility], in regards to discharge planning. Patient ambulated independently and had no services prior to coming to the hospital. PCP verified. Referral made to [facility] at patient's request. Patient had back surgery over a year ago. Patient will follow up with their office for an orthopedic. [facility] has a truck and will not be able to transport patient home. Patient's brother will transport patient home. Patient, Linda Ornelas RN and Avelina BUCKNER aware. Continue to monitor for d/c needs.
[2024-07-10 14:41] VITALS: BP 121/67; PULSE 70; RESP 18; TEMP 37; O2SAT 93
== END 2024-07-10 14:00 | disposition home or self-care (01) ==
PROVIDERS: Nurse Practitioner Family; Physician Assistant; Emergency Provider Emergency Medicine Emergency Medical Services; PCP Internal Medicine
DX: S62.307A Unspecified fracture of fifth metacarpal bone, left hand, initial encounter for closed fracture (principal); S80.01XA Contusion of right knee, initial encounter; M25.512 Pain in left shoulder; R51.9 Headache, unspecified; M54.2 Cervicalgia; R26.81 Unsteadiness on feet; E11.9 Type 2 diabetes mellitus without complications; M79.642 Pain in left hand; W01.0XXA Fall on same level from slipping, tripping and stumbling without subsequent striking against object, initial encounter; Y93.89 Activity, other specified; Y92.098 Other place in other non-institutional residence as the place of occurrence of the external cause; Y99.8 Other external cause status; Z11.52 Encounter for screening for COVID-19; Z79.84 Long term (current) use of oral hypoglycemic drugs; Z79.899 Other long term (current) drug therapy
CPT/HCPCS: 36415; 70450; 72125; 73030; 73110; 73130; 73564; 80053; 82947; 85025; 87635; 96374; 96375; 96376; 97161; 99285; J2405; J3010